=== PATIENT | male | born 1985 | race Caucasian/White ===

== ENCOUNTER 2019-02-04 15:00 | Emergency (ER) | payer OTHER ==
[~2019-02-04] VITALS: Ht 170.2 cm; Wt 83.9 kg
== END 2019-02-04 17:38 | disposition home or self-care (01) ==
LOC: ED 15:00
PROC: 0HQKXZZ Repair Right Lower Leg Skin, External Approach (ICD-10-PCS; principal; 2019-02-04)
DX: S81.811A Laceration without foreign body, right lower leg, initial encounter (principal); Z87.891 Personal history of nicotine dependence; W22.8XXA Striking against or struck by other objects, initial encounter
CPT/HCPCS: 12002; 99282-25